=== PATIENT | female | born 1955 | race Caucasian/White ===

== ENCOUNTER 2020-08-09 08:16 | Emergency (ER) | payer OTHER ==
[~2020-08-09] VITALS: Ht 167.6 cm; Wt 122.5 kg
[2020-08-09 08:30] VITALS: BP 145/92
[2020-08-09] MEDS ORDERED: LOVASTATIN 20 M20 MG PO (08:33)
[2020-08-09] MEDS ORDERED: MINIVELLE1 EAC1 TOP (08:34)
[2020-08-09] MEDS ORDERED: ZOLOFT50 M1 PO (08:34)
[2020-08-09] MEDS ORDERED: AMBIEN 10 MG TA10 MG PO (08:34)
[2020-08-09] MEDS ORDERED: LEVO-T25 MCG PO (08:34)
[2020-08-09] MEDS ORDERED: MOBIC7.5 MG PO (08:34)
== END 2020-08-09 09:36 | disposition home or self-care (01) ==
LOC: M.ERS 08:16
DX: E03.9 Hypothyroidism, unspecified (principal); E78.5 Hyperlipidemia, unspecified; Z90.711 Acquired absence of uterus with remaining cervical stump; Z79.899 Other long term (current) drug therapy; Z88.2 Allergy status to sulfonamides; Z88.6 Allergy status to analgesic agent